=== PATIENT | male | born 1970 | race American Indian/Alaskan Native ===

== ENCOUNTER 2018-03-07 10:31 | Emergency (ER) | payer MEDICARE ==
--- NOTE | 2018-03-07 12:39 | XRay Report ---
ROUTINE CHEST, TWO VIEWS: HISTORY: Dyspnea. The trachea, heart, mediastinal contour, lung ren and bony thorax are unremarkable. IMPRESSION: Unremarkable chest x-ray.
[2018-03-07] MEDS ORDERED: DELTASONE PO ONE (13:10)
[2018-03-07] MEDS ORDERED: DUONEB *Not for PRN Use IH ONE (13:10)
[2018-03-07] MEDS ORDERED: TORADOL IM ONE (13:10)
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
[2018-03-07] MEDS ORDERED: LEVAQUIN PO ONE (13:24)
[2018-03-07] MEDS ORDERED: NORCO 5/325 PO ONE (14:22)
[2018-03-07 15:07] LABS: Basophils % (Auto) 0.5 % (0.0-1.8); Eosinophils # (Auto) 0.3 K/mm3 (0.0-0.4); Eosinophils % (Auto) 5.1 % (0.0-4.3); Hematocrit 40.1 % (35.5-45.6); Hemoglobin 13.5 gm/dl (11.8-15.2); Lymphocytes # (Auto) 2.5 K/mm3 (1.2-5.4); Lymphocytes % (Auto) 46.2 % (13.4-35.0); Mean Corpuscular HGB Conc 34 % (32-34); Mean Corpuscular Hemoglobin 29 pg (28-32); Mean Corpuscular Volume 87 fl (84-94); Monocytes # (Auto) 0.5 K/mm3 (0.0-0.8); Monocytes % (Auto) 8.5 % (0.0-7.3); Platelet Count 302 K/mm3 (140-440); Red Blood Count 4.62 M/mm3 (3.65-5.03); Red Cell Distribution Width 14.6 % (13.2-15.2)
[2018-03-07 16:33] LABS: BUN/Creatinine Ratio 8; Blood Urea Nitrogen 9 mg/dL (9-20); Hemolysis Index 2
[2018-03-07 17:24] VITALS: BP 130/72
== END 2018-03-07 17:24 | disposition home or self-care (01) ==
LOC: ED 10:31
DX: J40 Bronchitis, not specified as acute or chronic (principal); I10 Essential (primary) hypertension; I25.2 Old myocardial infarction; F17.200 Nicotine dependence, unspecified, uncomplicated; Z87.442 Personal history of urinary calculi
CPT/HCPCS: 36415; 71046; 80048; 84484; 85025; 93005; 93010; 94640; 96372; 99284; J1885; J7512

== ENCOUNTER 2018-03-11 12:58 | Emergency (ER) | payer MEDICARE ==
[2018-03-11] MEDS ORDERED: PERCOCET 5/325 PO ONE (14:03)
[2018-03-11] MEDS ORDERED: SOLU-Medrol IV ONE (14:03)
[2018-03-11] MEDS ORDERED: ATROVENT IH ONE (14:04)
[2018-03-11] MEDS ORDERED: PROVENTIL IH ONE (14:04)
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
--- NOTE | 2018-03-11 14:42 | XRay Report ---
ROUTINE CHEST, TWO VIEWS: Cough. PA and lateral views demonstrate the heart and mediastinal contour to be of normal size and shape. The lungs are clear and fully expanded and the soft tissues and bony structures are normal. IMPRESSION: Normal study.
[2018-03-11 14:54] LABS: Basophils % (Auto) 0.6 % (0.0-1.8); Eosinophils # (Auto) 0.3 K/mm3 (0.0-0.4); Eosinophils % (Auto) 4.3 % (0.0-4.3); Hematocrit 40.2 % (35.5-45.6); Hemoglobin 14.1 gm/dl (11.8-15.2); Lymphocytes # (Auto) 2.4 K/mm3 (1.2-5.4); Mean Corpuscular HGB Conc 35 % (32-34); Mean Corpuscular Hemoglobin 30 pg (28-32); Mean Corpuscular Volume 85 fl (84-94); Monocytes # (Auto) 0.5 K/mm3 (0.0-0.8); Monocytes % (Auto) 7.2 % (0.0-7.3); Platelet Count 267 K/mm3 (140-440); Red Blood Count 4.72 M/mm3 (3.65-5.03); Red Cell Distribution Width 14.4 % (13.2-15.2)
[2018-03-11 15:12] LABS: Alanine Aminotransferase 28 units/L (7-56); Albumin 4.2 g/dL (3.9-5); BUN/Creatinine Ratio 13; Blood Urea Nitrogen 13 mg/dL (9-20); Hemolysis Index 9
[2018-03-11] MEDS ORDERED: TORADOL IV ONE (15:48)
[2018-03-11] MEDS ORDERED: MORPHINE IV ONE (17:10)
[2018-03-11 17:12] VITALS: BP 126/77
--- NOTE | 2018-03-11 17:18 | Cat Scan Report ---
FINAL REPORT EXAM: CT ANGIO CHEST HISTORY: CP, elevated dimer TECHNIQUE: Following IV administration of 100 cc of Omnipaque 350 axial helical imaging was performed through the chest with sagittal and coronal reformatted images and maximum intensity projection images obtained. Comparison: None FINDINGS: There is no evidence of infiltrate, pneumothorax or pleural fluid collection. The trachea and bronchi are patent. The heart is enlarged. There appears to be a coronary artery stent. The thoracic aorta is normal in appearance. There is no evidence of intrathoracic adenopathy. No filling defects are demonstrated within the pulmonary arteries to suggest the presence of pulmonary artery emboli. The visualized portion the upper abdomen is notable for partial visualization of a stone in the left renal pelvis and evidence of previous cholecystectomy. The bony structures are unremarkable in appearance. IMPRESSION: 1. No evidence of an acute intrathoracic process. 2. No evidence of pulmonary artery emboli. 3. Cardiomegaly with the appearance of a coronary artery stent. 4. Partial visualization of a stone in the left renal pelvis. 5. Evidence of previous cholecystectomy.
== END 2018-03-11 18:18 | disposition home or self-care (01) ==
LOC: ED 12:58
DX: J40 Bronchitis, not specified as acute or chronic (principal); I10 Essential (primary) hypertension; I25.2 Old myocardial infarction; F17.200 Nicotine dependence, unspecified, uncomplicated; Z90.49 Acquired absence of other specified parts of digestive tract; Z95.5 Presence of coronary angioplasty implant and graft
CPT/HCPCS: 36415; 71046; 71275; 80053; 84484; 85025; 85379; 93005; 93010; 94640; 96374; 96375; 99285; J1885; J2270; J2930; Q9967

== ENCOUNTER 2018-03-17 09:49 | Outpatient (CLI) | payer MEDICARE ==
[2018-03-17 10:24] LABS: Amphetamine Screen,Urine PRESUMPTIVE NEGATIVE; Benzodiazepines Screen,Urine PRESUMPTIVE NEGATIVE; Cannabinoid Screen,Urine PRESUMPTIVE NEGATIVE; Cocaine Screen,Urine PRESUMPTIVE NEGATIVE; Methadone Screen,Urine PRESUMPTIVE NEGATIVE; Opiate Screen,Urine PRESUMPTIVE NEGATIVE
== END 2018-03-17 09:50 | disposition home or self-care (01) ==
LOC: LAB 09:49
PROVIDERS: ATTEND Psychiatry & Neurology Psychiatry
DX: F15.10 Other stimulant abuse, uncomplicated (principal); F33.1 Major depressive disorder, recurrent, moderate; I10 Essential (primary) hypertension; F17.210 Nicotine dependence, cigarettes, uncomplicated; Z90.49 Acquired absence of other specified parts of digestive tract
CPT/HCPCS: 80307

== ENCOUNTER 2018-03-18 18:17 | Emergency (ER) | payer MEDICARE ==
[2018-03-18] MEDS ORDERED: DUONEB *Not for PRN Use IH ONE (21:22)
[2018-03-18] MEDS ORDERED: TORADOL IM ONE (21:25)
[2018-03-18 22:14] LABS: Basophils % (Auto) 0.4 % (0.0-1.8); Eosinophils # (Auto) 0.3 K/mm3 (0.0-0.4); Eosinophils % (Auto) 3.6 % (0.0-4.3); Hematocrit 36.3 % (35.5-45.6); Hemoglobin 12.6 gm/dl (11.8-15.2); Lymphocytes # (Auto) 2.3 K/mm3 (1.2-5.4); Lymphocytes % (Auto) 29.6 % (13.4-35.0); Mean Corpuscular HGB Conc 35 % (32-34); Mean Corpuscular Hemoglobin 30 pg (28-32); Mean Corpuscular Volume 86 fl (84-94); Monocytes # (Auto) 0.6 K/mm3 (0.0-0.8); Platelet Count 182 K/mm3 (140-440); Red Blood Count 4.21 M/mm3 (3.65-5.03); Red Cell Distribution Width 14.2 % (13.2-15.2)
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
[2018-03-18] MEDS ORDERED: DELTASONE PO ONE (22:47)
--- NOTE | 2018-03-18 22:48 | XRay Report ---
FINAL REPORT PROCEDURE: XR CHEST ROUTINE 2V TECHNIQUE: PA and lateral chest radiographs were obtained. CPT 44365 HISTORY: cough COMPARISON: No prior studies are available for comparison. FINDINGS: Heart: Normal. Mediastinum/Vessels: Normal. Lungs/Pleural space: Normal. Bony thorax: No acute osseous abnormality. Other: IMPRESSION: Normal examination.
[2018-03-18] MEDS ORDERED: NORCO 5/325 PO ONE (22:59)
[2018-03-18 23:01] LABS: BUN/Creatinine Ratio 12; Blood Urea Nitrogen 14 mg/dL (9-20); Calcium 8.4 mg/dL (8.4-10.2); Hemolysis Index 0
[2018-03-19 00:27] VITALS: BP 136/72
== END 2018-03-19 00:32 | disposition home or self-care (01) ==
LOC: ED 18:17
DX: J40 Bronchitis, not specified as acute or chronic (principal); F17.200 Nicotine dependence, unspecified, uncomplicated; I11.0 Hypertensive heart disease with heart failure; Z87.442 Personal history of urinary calculi; Z90.49 Acquired absence of other specified parts of digestive tract
CPT/HCPCS: 36415; 71046; 80048; 84484; 85025; 93005; 93010; 94640; 96372; 99284; J1885; J7512

== ENCOUNTER 2018-10-13 15:06 | Emergency (ER) | payer MEDICARE ==
--- NOTE | 2018-10-13 15:25 | Emergency Department Report ---
Blank Doc - Documentation Documentation: This is a 48-year-old male that presents with abdominal pain with nausea vomit ing and chest pain with left sided radiation. This initial assessment/diagnostic orders/clinical plan/treatment(s) is/are subject to change based on patient's health status, clinical progression and re- assessment by fellow clinical providers in the ED. Further treatment and workup at subsequent clinical providers discretion. Patient/guardians urged not to elope from the ED as their condition may be serious if not clinically assessed and managed. Initial orders include: 1- Patient sent to MAIN ED for further evaluation and treatment 2- labs 3- EKG 4- CXR
[2018-10-13 15:56] LABS: Basophils % (Auto) 0.6 % (0.0-1.8); Eosinophils # (Auto) 0.2 K/mm3 (0.0-0.4); Eosinophils % (Auto) 3.3 % (0.0-4.3); Hematocrit 46.8 % (35.5-45.6); Hemoglobin 15.7 gm/dl (11.8-15.2); Lymphocytes # (Auto) 2.3 K/mm3 (1.2-5.4); Lymphocytes % (Auto) 32.6 % (13.4-35.0); Mean Corpuscular HGB Conc 34 % (32-34); Mean Corpuscular Volume 85 fl (84-94); Monocytes # (Auto) 0.5 K/mm3 (0.0-0.8); Monocytes % (Auto) 7.9 % (0.0-7.3); Platelet Count 228 K/mm3 (140-440); Red Cell Distribution Width 15.6 % (13.2-15.2)
[2018-10-13 16:19] LABS: BUN/Creatinine Ratio 12; Blood Urea Nitrogen 13 mg/dL (9-20); Calcium 9.1 mg/dL (8.4-10.2); Hemolysis Index 8
[2018-10-13 16:20] LABS: INR 0.9 (0.87-1.13)
[2018-10-13 16:21] LABS: Partial Thromboplastin Time 24.9 Sec. (24.2-36.6)
[2018-10-13 16:23] LABS: Alanine Aminotransferase 25 units/L (7-56); Albumin 4.1 g/dL (3.9-5); Bilirubin,Direct < 0.2 mg/dL (0-0.2)
[2018-10-13 16:45] LABS: Bilirubin,Urine NEG (Negative); Blood,Urine NEG (Negative); Color,Urine Yellow (Yellow); Protein,Urine <15 mg/dL mg/dL (Negative); Urobilinogen,Urine < 2.0 mg/dL (<2.0)
--- NOTE | 2018-10-13 16:52 | XRay Report ---
PROCEDURE: XR CHEST ROUTINE 2V TECHNIQUE: Frontal and lateral views of the chest HISTORY: Chest Pain COMPARISONS: Chest radiograph performed on 03/18/2018 FINDINGS: The cardiomediastinal silhouette is normal in appearance. The lungs are clear without focal consolidation. No pleural effusion or pneumothorax. No acute bony or soft tissue abnormality. IMPRESSION: No acute cardiopulmonary disease. This document is electronically signed by Bisi Simon MD., October 13 2018 04:50:18 PM ET
[2018-10-13] MEDS ORDERED: NACL 0.9% 1000 ML 1,000 ML IV ONE (16:53)
[2018-10-13] MEDS ORDERED: MORPHINE IV ONE (16:53)
[2018-10-13] MEDS ORDERED: ZOFRAN IV ONE (16:53)
--- NOTE | 2018-10-13 18:06 | Cat Scan Report ---
PROCEDURE: CT ABDOMEN PELVIS W CON TECHNIQUE: Following administration of IV contrast axial helical imaging was performed through the a bdomen and pelvis with sagittal and coronal reformatted images obtained. Delayed axial helical imagin g was also performed through the abdomen and pelvis. HISTORY: abd pain COMPARISONS: CTs abdomen and pelvis dated September 08, 2018 and February 25, 2018. FINDINGS: The lung bases are without infiltrate, pneumothorax or pleural fluid collection. The heart appears to be enlarged. The liver, spleen, pancreas and adrenal glands are unremarkable. The gallbladder is absent with surgical clips in the gallbladder fossa. There are small nonobstructing stones in the renal pelvis bilaterally. There is no evidence of hydron ephrosis nor hydroureter. There is moderate distention of the stomach and proximal jejunum. There is a transition in the calibe r of the small bowel in the region of the distal jejunum. At the site of transition there is the appe arance of increased thickness of the wall of the distal jejunum (images 93 through 105, series of 188 axial images). The remainder of the small bowel is variable caliber from mildly distended to decompr essed. The appendix is normal caliber. There is no evidence of pneumoperitoneum or free fluid. The abdominal aorta is normal caliber. There is no evidence of intra-abdominal adenopathy. The urinary bladder is mildly distended and unremarkable. Prostate gland is mildly enlarged with maximal axial dimension of 4.3 cm. The bony structures are notable for degenerative disc and endplate change at the L4-L5 level and mult iple level degenerative facet change in the lumbar spine. There are multiple anterior abdominal wall hernias that contain fat. One of the hernias contain the a nterior aspect of a short segment of transverse colon which is normal caliber. This is similar in ann marie earance to the previous study of September 08, 2018. IMPRESSION: 1. No definite CT evidence of an acute intra-abdominal process. 2. There is moderate distention of the stomach and proximal jejunum with a transition in the caliber of the small bowel in the region of the distal jejunum with the appearance of increased thickness of the wall of the distal jejunum. CT imaging with GI opacification may be helpful for further evaluatio n of this finding. 3. Nonobstructing stones renal pelvis bilaterally. 4. Status post cholecystectomy. 5. Mild enlargement of the prostate gland. 6. Multiple anterior abdominal wall hernia that contains fat and one that contains the anterior aspec t of a short segment of transverse colon which is normal caliber. 7. Spondylitic change lumbar spine. 8. The heart appears to be enlarged. This document is electronically signed by Eliza Dent MD., October 13 2018 06:05:05 PM ET
[2018-10-13] MEDS ORDERED: DILAUDID IV ONE (19:03)
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
[2018-10-13 20:35] VITALS: BP 124/86
== END 2018-10-13 20:30 | disposition home or self-care (01) ==
LOC: ED 15:06
DX: K52.9 Noninfective gastroenteritis and colitis, unspecified (principal); I10 Essential (primary) hypertension; I25.2 Old myocardial infarction; F17.200 Nicotine dependence, unspecified, uncomplicated
CPT/HCPCS: 36415; 71046; 74177; 80048; 80076; 81001; 83690; 84484; 85025; 85610; 85730; 93005; 93010; 96361; 96374; 96375; 99285; J1170; J2270; J2405; J7030; Q9967

== ENCOUNTER 2019-12-29 15:46 | Emergency (ER) | payer MEDICARE ==
--- NOTE | 2019-12-29 18:25 | Event Note ---
ED Screening Note ED Screening Note: takes lisinopril and amlodipine states he has been amlodipine but has not taken his lisinopril for a month headache that began a couple of days ago which he relates to his BP denies any acute numbness, weakness, gait disturbance, speech disturbance states that he has had increased stress states he also needs medical clearance for [place] states he is going to [facility] for depression no HI/SI PMHx HTN, CVA BP 169/101 This initial assessment/diagnostic orders/clinical plan/treatment(s) is/are s ubject to change based on patients health status, clinical progression and re- assessment by fellow clinical providers in the ED. Further treatment and workup at subsequent clinical providers discretion. Patient/guardian urged not to elope from the ED as their condition may be serious if not clinically assessed and managed. Initial orders include: medical clearance
[2019-12-29 19:00] LABS: Hematocrit 36.9 % (35.5-45.6); Hemoglobin 11.9 gm/dl (11.8-15.2); Mean Corpuscular HGB Conc 32 % (32-34); Mean Corpuscular Volume 73 fl (84-94); Platelet Count 295 K/mm3 (140-440); Red Blood Count 5.05 M/mm3 (3.65-5.03)
[2019-12-29 19:11] LABS: Alanine Aminotransferase 18 units/L (7-56); Albumin 4.1 g/dL (3.9-5); BUN/Creatinine Ratio 9; Blood Urea Nitrogen 10 mg/dL (9-20); Calcium 9.1 mg/dL (8.4-10.2); Hemolysis Index 17; Lymphocytes % (Auto) 37.1 % (13.4-35.0); Red Cell Distribution Width 20.5 % (13.2-15.2)
[2019-12-29 19:12] LABS: Basophils % (Auto) 0.7 % (0.0-1.8); Eosinophils # (Auto) 0.1 K/mm3 (0.0-0.4); Eosinophils % (Auto) 2.6 % (0.0-4.3); Lymphocytes # (Auto) 2.1 K/mm3 (1.2-5.4); Monocytes # (Auto) 0.5 K/mm3 (0.0-0.8); Monocytes % (Auto) 8.8 % (0.0-7.3)
[2019-12-29] MEDS ORDERED: hydrOXYzine PAMOATE 25 MG CAP PO ONE (20:05)
[2019-12-29] MEDS ORDERED: KETOROLAC 30 MG/1 ML INJ IM ONE (20:05)
[2019-12-29] MEDS ORDERED: BUTALB/ACETAMINOPHEN/CAFFEINE TAB PO ONE (20:05)
[2019-12-29 20:24] VITALS: BP 184/101
[2019-12-29 21:40] LABS: Benzodiazepines Screen,Urine Negative; Cocaine Screen,Urine Negative; Methadone Screen,Urine Negative; Opiate Screen,Urine Negative
[2019-12-29 21:45] LABS: Bacteria,Urine 2+ /HPF (Negative); Bilirubin,Urine NEG (Negative); Blood,Urine SM (Negative); Calcium Oxalate Crystals,Urine 1+; Color,Urine Yellow (Yellow); Mucus,Urine FEW /HPF
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
[2019-12-29 21:56] LABS: Amphetamine Screen,Urine Positive; Cannabinoid Screen,Urine Positive
== END 2019-12-29 22:20 | disposition home or self-care (01) ==
LOC: ED 15:46
DX: G44.209 Tension-type headache, unspecified, not intractable (principal); F41.9 Anxiety disorder, unspecified; F32.9 Major depressive disorder, single episode, unspecified; Z04.6 Encounter for general psychiatric examination, requested by authority; I10 Essential (primary) hypertension; I25.2 Old myocardial infarction; Z87.442 Personal history of urinary calculi; Z90.49 Acquired absence of other specified parts of digestive tract; Z98.890 Other specified postprocedural states; Z79.899 Other long term (current) drug therapy
CPT/HCPCS: 36415; 80053; 80307; 81001; 85025; 96372; 99283; J1885; 80320; G0480; Q0177